=== PATIENT | female | born 1945 | race Caucasian/White ===

== ENCOUNTER 2018-05-15 08:00 | Observation (INO) ==
[2018-05-15] MEDS: RINGER'S SOLUTION,LACTATED 1,000 ML IV PRN ×2 (07:21→09:40)
[~2018-05-15 08:00] MED LIST: MORPHINE SULFATE 15 MG TABLET.SA PO PRN; ROPIVACAINE HCL/PF 100 MG, EPINEPHrine 0.2 MG, KETOROLAC TROMETHAMINE 30 MG in NORMAL S... IJ PRN; TRANEXAMIC ACID 1,000 MG in NORMAL SALINE 100 ML IV PRN; ceFAZolin SODIUM 1 GM VIAL IV PRN
--- NOTE | 2018-05-15 08:47 | ANES ---
Anesthesia Pre Procedure Eval Vitals/Labs: Last Vital Signs Temp 37.1 C 05/15/18 06:41 Pulse 98 05/15/18 06:41 Resp 18 05/15/18 06:41 BP 171/77 H 05/15/18 06:41 Pulse Ox 96 05/15/18 06:41 HOME MEDICATIONS chondroitin sulfate A sodium 400 mg capsule 400 mg PO TID 04/18/18 [Last Taken Unknown] coenzyme Q10 100 mg capsule 100 mg PO DAILY 04/18/18 [Last Taken 05/14/18] glucosamine HCl 1,500 mg tablet 1,500 mg PO DAILY tab 04/18/18 [Last Taken 05/14/18] ibuprofen 200 mg tablet 400 mg PO TID-QID PRN tab 04/18/18 [Last Taken 05/08/18] lisinopril 20 mg tablet 20 mg PO BID 04/18/18 [Last Taken 05/15/18] menthol 4 % topical gel 4 % TP TID-QID PRN ml 04/18/18 [Last Taken Unknown] wvcoedvy-yje-nkfbg acid 200 mcg-herbal no.245 37.5 mg chewable tablet 2 tab PO DAILY tab 04/18/18 [Last Taken 05/14/18] omega-3 fatty acids 1,000 mg capsule 1,000 mg PO DAILY 04/18/18 [Last Taken 05/14/18] Allergies/Adverse Reactions: Allergies Allergy/AdvReac Type Severity Reaction Status Date / Time No Known Allergies Allergy Verified 05/11/18 14:10 - Planned Procedure Planned Procedure: Right Arthroplasty Total Knee Medication List Reviewed:: Yes Allergies Verified: Yes Medical History (Last Reviewed 05/15/18 @ 08:44 by Silviano Bell CRNA) Heart murmur Lives alone with help available No history of alcohol use Non-tobacco user Wears dentures fill upper Wears glasses Knee pain Onset Date: Unknown Arthritis Onset Date: Unknown Hypertension Onset Date: Unknown Joint pain Onset Date: Unknown 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, left worse than right Surgical History (Last Reviewed 05/15/18 @ 08:44 by Silviano Bell CRNA) Hx of lumpectomy p/t reports not remembering which breast, p/t also reports lumps being benign history of goiter removal H/O colonoscopy Onset Date: ~02/2018 H/O tubal ligation Onset Date: Unknown Family History (Last Reviewed 05/15/18 @ 08:44 by Silviano Bell CRNA) Mother , 81 Cancer lung Father , 73 AA (alcohol abuse) Cancer colon Sister , 67 Cancer lung Brother Cancer skin Daughter Alive and well Daughter Alive and well Son Alive and well Son Alive and well - Family Anesthesia History Family History:: no untoward family reactions to anesthesia, no familial bleeding tendencies, no family history of clotting disorders, no family history of premature - Airway/Neck/Teeth Within Normal Limits:: Yes Denture Type: Full upper, Partial upper Neck Exam: full range of motion Mallampatti Score: 3 Thyromental (T-M) distance: > 6 cm Mandibulo Hyoid distance: > 3 cm - Respiratory Respiratory Physical: lungs clear Smoking Status: Never smoker Discussed smoking cessation including day of surgery: No Sleep Apnea currently treated: No Sleep Apnea by current assessment: No - Cardiovascular Cardiac History: hypertension, valvular heart disease Tolerate Activity: Fair Heart Sounds: S1 & S2, Regular, Murmur - Grade III at base - Anesthesia Assessment and Plan ASA Class: PS, III Anesthesia Type Plan: General LMA - Considering Grade III murmer at base of heart and no echocardiogram, possible aortic stenosis dictates GA, Block - For post op pain relief
[2018-05-15] MEDS ORDERED: oxyCODONE HCL/ACETAMINOPHEN 1 TAB TABLET PO PRN (09:54)
[2018-05-15] MEDS ORDERED: MAGNESIUM HYDROXIDE 30 ML UDC PO PRN (09:54)
[2018-05-15] MEDS ORDERED: ONDANSETRON HCL/PF 2 MG/ML VIAL IV PRN (09:54)
[2018-05-15] MEDS ORDERED: diphenhydrAMINE HCL 50 MG/ML VIAL IV PRN (09:54)
[2018-05-15] MEDS ORDERED: ZOLPIDEM TARTRATE 5 MG TABLET PO PRN (09:54)
[2018-05-15] MEDS ORDERED: MORPHINE SULFATE 2 MG/ML DISP.SYRIN IV PRN (09:54)
[2018-05-15] MEDS ORDERED: ACETAMINOPHEN 500 MG TABLET PO PRN (09:54)
[2018-05-15] MEDS ORDERED: MAG HYDROX/ALUMINUM HYD/SIMETH 30 ML UDC PO PRN (09:54)
--- NOTE | 2018-05-15 09:54 | OR ---
Operative Report - Dictated Report Narrative: Date: 05/15/2018 Preoperative diagnosis: Right Knee degenerative joint disease. Postoperative diagnosis: Right Knee degenerative joint disease. Procedure: Right Total knee arthroplasty. (Please add 22 modifier due to significantly limited range of motion making the surgical procedure significantly more difficult, increased risk of complications intraoperatively, and increased surgical time) Surgeon: Sami Reagan M.D. Mortgage Lender: Abdiel Gaytan PA-C (provided and essential set of skilled, educated hands that assisted with transfer, positioning, prepping, draping, manipulation, retraction, placement of jigs, injection, insertion of implants, irrigation, closure wounds, and dressings all of which could not be performed by the available surgical crew) Anesthesia: General With regional block and local periarticular joint injection. Complications: None Specimens: Bone for disposal. Estimated blood loss: Minimal. Tourniquet time: 105 Minutes at 350 millimeters of mercury. Retained implants: Depuy Attune size 4 right lugged cemented posterior stabilized femoral component. Size 4 fixed-bearing cemented tibial platform. 4 by 5 millimeter posterior stabilized cross-linked tibial insert. 35 millimeter medialized patella button. Indications: Mrs. Tuttle is a 72-year-old female who has had long-standing right knee pain and arthrosis with limited range of motion. This patient was followed in my clinic for period of time with significant complaints of right knee pain consistent with arthritic changes. She had failed conservative measures including, but not limited to, activity modification, passage of time, medications, and other conservative measures. Patient wished to proceed with surgical treatment. The risks, benefits, and alternatives were discussed in clinic. The risks of , blood clots, bleeding, infection, nerve/tendon blood vessel/ injury, malposition of components, intraoperative fracture, postoperative limited range of motion, persistent pain, failure of components, and need for additional procedures. Patient wished to proceed consent was obtained after answering all questions. Procedure: After marking the correct extremity on the floor, the patient was taken to the operating room. A timeout was performed. IV antibiotics consisting of Ancef were administered prior to the procedure. A regional anesthetic followed by general anesthetic was induced by anesthesia, per my request, on the operative table with all bony prominences well-padded. Barcenas catheter was placed, and a bump was placed under the operative side buttock. SCDs and GLORIA hose were utilized on the nonoperative leg. A well-padded tourniquet was applied to the operative thigh. The operative leg was then pre- scrubbed with alcohol, prepped, and draped in a standard sterile fashion. After exsanguinating the extremity with an Esmarch bandage, the tourniquet was inflated. After marking out the anterior knee for standard incision centered over the patella, the skin was incised and dissected down to the joint retinaculum. The joint retinaculum was marked out as well as the horizontal axis of the patella, and a standard medial parapatellar arthrotomy was then made. The most proximal aspect of the quadriceps tendon and the patella tendon insertion were protected from release. A partial synovectomy was performed as well as a resection of the infrapatellar fat pad. The distal femoral fat pad proximal to the trochlea was also resected using cautery. The soft tissues were elevated off the medial aspect of the proximal tibia using a Ocampo elevator ensuring that we did not transect the medial collateral ligament. Upon initial evaluation range of motion was approximately 10 degrees to 45 degrees of flexion. There were signs of advanced arthrosis in the medial, lateral, and patellofemoral joint spaces. There were large marginal osteophytes which were removed with a rongeur. The knee was hyperflexed and the patella was tucked laterally. Protecting the surrounding soft tissues with Homans, an entry drill was placed down the femoral canal using Whitesides line for guidance into the entry point. The intramedullary femoral alignment jose c was utilized in order to cut the distal femur in 5 degrees of valgus resecting 11 millimeters of bone. Next the distal femur was sized to a size 4. A posterior referencing guide was utilized to place the distal femoral cutting block in 3 degrees of external rotation. This was pinned into place. The rotation was confirmed both visually and based on anatomic landmarks. The 4 in 1 cutting jig of the appropriate size was utilized in order to make all bony cuts. The angle wing was used to ensure no notching. Retractors were utilized in order to protect surrounding soft tissues. This cut did not result in any excessive notching. We then cut the box centered over the distal femur. This allowed for resection of the anterior and posterior cruciate ligaments. I then turned my attention to the preparation of the tibia. Using an extra medullary tibial alignment jose c, 2 millimeters of bone was resected off the medial articular surface. This was made perpendicular to the mechanical axis of the joint with the alignment jose c centered over the ankle mortise. The alignment jose c was checked and was noted to be parallel to the mechanical axis, centered over the medial one third of the tibial tubercle, paralleling the anterior surface of the tibia. We then turned our attention to the remaining meniscus and soft tissues. These were removed while protecting the surrounding ligaments and soft tissues. The marginal osteophytes off the anterior, posterior, medial, lateral aspects of the femur and tibia were removed. The tibia was sized out to a size 4. Next the tibia was drilled and punched in an externally rotated position. Next the trial femur and a series of tibial inserts were utilized in order to allow for full extension and maximal flexion. It was found that a 5 millimeter insert gave the best range of motion and stability at multiple flexion points as well as at full extension there was less than 2 mm of gapping both medially and laterally. There is minimal anterior translation with the knee at 90 degrees of flexion and no signs of being able to dislocate the knee. The patella was then prepared. The initial thickness was 24 millimeters. This was reamed down to 14 millimeters parallel to the anterior surface of the patella. It was sized out to a size 35 medialized patella button. This was then drilled and trialed. Without any medial restraint the patella tracked appropriately and did not sublux or dislocate. At this point, it was felt these were the appropriate sized implants, and all trials were removed. The standard periarticular joint injection consisting of ropivacaine, Toradol, and epinephrine were injected into the periarticular joint tissues. The bony surfaces were thoroughly irrigated with a pulsatile-suction saline irrigation device. A bone plug from the prior resected anterior chamfer cut was placed into the drill hole at the distal femur. The bony surfaces were then dried in preparation for placement of the implants. The cement was vacuum mixed per the crew team member's instructions. The cement was placed on the dry bony surfaces and posterior aspect of the implants. The implants were impacted into place, removing all extruded cement. At this point anesthesia administered tranexamic acid per protocol intravenously. The knee was placed in extension with axial loading with the trial insert while the cement cured. Once the cement cured, all remaining extruded cement was removed. The knee was placed t hrough a range of motion with the trial insert to ensure appropriate range of motion and stability. Final range of motion was approximately 0 to 110 degrees. The knee was again thoroughly irrigated with pulsatile saline lavage. The final polyethylene insert was then impacted into place ensuring no retained soft tissues. The remaining periarticular joint injection was injected. A medium Hemovac drain was placed exiting superior laterally. The knee was then placed over a triangle and the arthrotomy was closed with interrupted #1 Vicryl after thoroughly irrigating the joint. The deep and subcutaneous tissues were closed with interrupted 0 and 3-0 Vicryl respectively. Skin was closed with a running subcutaneous 3-0 Monocryl and Prineo Dermabond dressing. 4 x 4's, Sof-Rol, and a full leg Steven wrap were applied. All sponge, needle, blade, and instrument counts were correct prior to closing the wounds. Postoperative condition: The patient was awoken and transferred to the postanesthesia care unit in stable condition. Plan is to be admitted to the inpatient medical/surgical floor postoperatively for 24 hours of IV antibiotics, physical therapy, occupational therapy, and medical comanagement. Patient will be weightbearing as tolerated with range of motion as tolerated. DVT prophylaxis will be with SCDs, GLORIA hose, and pharmacological anticoagulation. Anticipated hospital stay is approximately 1-3 days.
--- NOTE | 2018-05-15 10:18 | ANES ---
Post Anesthesia Discharge - Transfer of Care Transfer of Care handoff given to nurse: Yes - Discharge from PACU Discharge from PACU when meets criteria: Yes - Comfortable in PACU.
--- NOTE | 2018-05-15 10:18 | ANES ---
Anesthesia Procedure Note Procedure Note: ANESTHESIA PROCEDURE NOTE Date of Procedure: 05/15/2018 Time of procedure: 7:50 AM. Performed by: Silviano Bell CRNA, MSN Sales Representative [employer]: Jerilyn Garces RN. Preprocedure diagnosis: Post right total knee arthroplasty. Post procedure diagnosis: Same. Procedure: Right Adductor Canal Block. Indications: Post great total knee arthroplasty pain relief. Findings: See below. Details of the procedure: The patient was brought to OR #4 and placed in supine position. The patient's right femoral area to the knee was prepped with chlorhexidine and using ultrasound guidance the great femoral artery was identified at approximately the proximal one third femur. Under ultrasound guidance the saphenous nerve was approached with visualization of a 4 inch shielded block needle approaching the adductor canal just under the sartorius muscle. Once saphenous nerve was identified with proximity to the needle tip, the saphenous nerve was surrounded with 20 mL bupivacaine 0.25% with 1-200,000 epinephrine. Please see radiology/ultrasound report for details and retained images of the procedure. EBL: 0 Fluids: N/A. Specimen: N/A. Post procedure condition: The patient tolerated the procedure well. No complications were noted. Thank you for this consultation. Silviano Bell CRNA, MSN
--- NOTE | 2018-05-15 10:38 | ANES ---
Post Anesthesia Assessment - Vital Signs Vitals: Last Vital Signs Temp 37.0 C 05/15/18 10:15 Pulse 67 05/15/18 10:30 Resp 13 05/15/18 10:30 BP 123/57 05/15/18 10:30 Pulse Ox 97 05/15/18 10:30 Airway Patency: Normal - Mental Status Level Of Consciousness: Awake - Pain Level Pain Score: 8 - Giving dilaudid for pain - N/V Assessment Nausea/Vomiting Presence: None Dehydration:: No
[2018-05-15] MEDS ORDERED: HYDROmorphone HCL 1 MG/ML DISP.SYRIN IV ONE (10:40)
[2018-05-15] MEDS: DEXTROSE 5%-LACTATED RINGERS 1,000 ML IV PRN ×2 (11:05→20:11)
[2018-05-15] MEDS: KETOROLAC TROMETHAMINE 15 MG/ML VIAL IV SCH ×3 (11:07→22:59)
[2018-05-15] MEDS: ceFAZolin SODIUM 1 GM in DEXTROSE 5 % IN WATER 100 ML IV SCH ×6 (12:41→23:02)
[2018-05-15] MEDS: CHONDROITIN SULFATE A SODIUM 400 MG PO SCH ×2 (14:23→20:13)
[2018-05-15] MEDS: LISINOPRIL 20 MG TABLET PO SCH (20:15)
[2018-05-15] MEDS: MORPHINE SULFATE 15 MG TABLET.SA PO SCH (20:18)
[2018-05-15] MEDS ORDERED: SENNOSIDES/DOCUSATE SODIUM 1 TAB TABLET PO SCH (21:00)
[2018-05-16] MEDS: KETOROLAC TROMETHAMINE 15 MG/ML VIAL IV SCH ×2 (04:37→12:46)
[2018-05-16 05:36] LABS: Anion Gap 9.5 mmol/L (6.8-13.8); BUN/Creatinine Ratio 23.1 (9.0-21.6); Calcium * 8.4 mg/dL (7.9-10.9); Carbon Dioxide 30.9 mmol/L (24-32.6); Estimated Creat Clear 46.1; Potassium 5.4 mmol/L (3.4-4.6)
[2018-05-16] MEDS: LISINOPRIL 20 MG TABLET PO SCH (08:21)
[2018-05-16] MEDS: CHONDROITIN SULFATE A SODIUM 400 MG PO SCH ×2 (08:22→12:47)
[2018-05-16] MEDS: MORPHINE SULFATE 15 MG TABLET.SA PO SCH (08:25)
[2018-05-16] MEDS ORDERED: ENOXAPARIN SODIUM 40 MG/0.4 ML SYRG SC SCH (08:54)
[2018-05-16] MEDS ORDERED: Ubidecarenone [Coenzyme Q10] 100 MG PO SCH (09:00)
[2018-05-16] MEDS ORDERED: FOLIC ACID PO SCH (09:00)
[2018-05-16] MEDS ORDERED: [UNRECOGNIZED DRUG - OTHER] PO SCH (09:00)
[2018-05-16] MEDS ORDERED: MULTIVIT MIN PO SCH (09:00)
[2018-05-16] MEDS ORDERED: OMEGA-3 FATTY ACIDS 1 CAP CAPSULE PO SCH (09:00)
--- NOTE | 2018-05-16 11:36 | DS ---
(1) Degenerative joint disease of right knee Problem: Acute (2) Status post total right knee replacement Problem: Acute (3) Hypertension Problem: Acute Description of Stay: Mrs. Tuttle was admitted to the floor after undergoing right total knee arthroplasty. Tolerated this well. Was admitted to the floor postoperatively for 24 hours of IV antibiotics, pain control, medical comanagement, and occupational and physical therapy. OT and PT were consulted to assist with activities of daily living and ambulation. Was made weightbearing as tolerated with range of motion as tolerated. Pain was initially controlled with IV regimen. This was transitioned to oral once tolerating a by mouth intake. Was resumed on home diet and medications. Had a Barcenas catheter inserted and the operating room which was discontinued on postoperative day 1. A drain was placed intraoperatively into the knee which was discontinued on postoperative day 1. Lovenox SCD and GLORIA hose were utilized for DVT prophylaxis. Vital signs remained stable to the hospital course. BMP was reviewed and was stable. Physical examination throughout the hospital course showed an extremity that had sensation that was intact to light touch, palpable pulses, a benign wound, motor intact to the toes, ankle, and knee. Knee range of motion was approximately 5 degrees to 70 degrees. Once an oral pain regimen was tolerated and physical therapy goals were met, it was felt that they were stable for discharge to home. Instructions: Mrs. Tuttle is confined to the house due to undergoing a right total knee arthroplasty. She is unable to drive a car for a minimum of 6 weeks due to this. The need for fci's for wound checks. The need for home physical therapy is for for progressive strengthening and range of motion of her right knee replacement. The need for home health care skilled services is directly related to the time spent [id number] with the Mrs. Tuttle. Continue with weightbearing as tolerated and range of motion as tolerated. It is OK to shower on the wound if it is not draining. If you note any drainage or for comfort you can cover with dry gauze and tape. Change every 2-3 days as needed. Continue with physical therapy. Resume home diet. Report any fever over 101.5 Fahrenheit, uncontrolled pain, increased drainage, foul odor of drainage, new or increased calf pain or shortness of breath, or any other significant complaints. A 325mg dialy aspirin will be started after finishing anticoagulation if not allergic. Continue with GLORIA hose on the operative extremity until instructed otherwise. No driving until instructed otherwise. Follow up in approximately 10-14 days. Procedures Performed: see notes below List Procedures: Right total knee arthroplasty Results and Findings: Lab Pending Results 05/16/18 05:23: Sodium 143 H, Plasma Sodium 143 H, Potassium 5.4 H D, Chloride 108 H, Carbon Dioxide 30.9, Anion Gap 9.5, BUN 18, Creatinine 0.78, Est GFR (Non-Af Amer) 77, BUN/Creatinine Ratio 23.1 H, Random Glucose 109, Calcium 8.4 Discharge Location: Home Disposition: [facility] Condition: Good Face to Face Encounter completed per [facility] Guidelines: Yes Discharge Activity: Activity as tolerated, Weight bearing, Other - with wheeled walker Discharge Diet: Low salt Referrals: Catrachita Bryant NP [Primary Care Provider] - Additional Patient Instructions (free text): Follow up Orthopedic Dr Reagan office appt on TuesdayJun 06 at 10:45am. [facility] to follow at home for Physical Therapy, please call them at [phone] and fax dc information, demographics and order to fax # [phone]. Prescriptions (Any new or edited meds): Enoxaparin Sodium [Lovenox] 40 mg SC Q24H #7 disp.syrin Morphine Sulfate [Ms Contin] 15 mg PO Q12H #14 tablet.sa oxyCODONE HCL/ACETAMINOPHEN [Percocet 5 MG/325 MG] 2 tab PO Q4H PRN #60 tab PRN Reason: Moderate Pain (Pain Scale 4-6) Sennosides/Docusate Sodium [Senokot-S] 2 tab PO HS #30 tab Complete Home Medications List: Complete Home Medication List: chondroitin sulfate A sodium 400 mg capsule 400 mg PO DAILY 04/18/18 coenzyme Q10 100 mg capsule 100 mg PO DAILY 04/18/18 glucosamine HCl 1,500 mg tablet 1,500 mg PO DAILY tab 04/18/18 lisinopril 20 mg tablet 20 mg PO BID 04/18/18 menthol 4 % topical gel 4 % TP TID-QID PRN ml 04/18/18 hobhfjef-css-fugsf acid 200 mcg-herbal no.245 37.5 mg chewable tablet 2 tab PO DAILY tab 04/18/18 omega-3 fatty acids 1,000 mg capsule 1,000 mg PO DAILY 04/18/18 Enoxaparin Sodium [Lovenox] 40 mg SC Q24H #7 disp.syrin 05/16/18 Morphine Sulfate [Ms Contin] 15 mg PO Q12H #14 tablet.sa 05/16/18 Sennosides/Docusate Sodium [Senokot-S] 2 tab PO HS #30 tab 05/16/18 oxyCODONE HCL/ACETAMINOPHEN [Percocet 5 MG/325 MG] 2 tab PO Q4H PRN #60 tab 05/16/18
[2018-05-16 12:59] VITALS: BP 139/56
== END 2018-05-16 13:15 | disposition home health service (06) ==
LOC: MS → EDSTATUS 08:00
PROVIDERS: ADMIT Orthopaedic Surgery; ATTEND Orthopaedic Surgery
CPT/HCPCS: 36415; 73560; 80048; 96372; 96374; 96376; 97110; 97116; 97161; 97165; 97530; G0378; G0379